=== PATIENT | male | born 2005 | race Caucasian/White ===

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

== ENCOUNTER 2024-11-15 19:07 | Emergency (ER) | payer BC, OTHER | END 2024-11-15 20:10 | disposition home or self-care (01) | LOC: MW.ED 19:07 | DX: L03.113 Cellulitis of right upper limb (principal); F17.200 Nicotine dependence, unspecified, uncomplicated; Z88.0 Allergy status to penicillin | CPT/HCPCS: 99283 ==